=== PATIENT | female | born 1965 | race Caucasian/White ===

== ENCOUNTER 2016-11-11 11:05 | Emergency (ER) | payer OTHER ==
[~2016-11-11] VITALS: Ht 157.5 cm; Wt 61.2 kg
[~2016-11-11 11:05] MED LIST: ALBUTEROL0.09 MG/A1 INH; CLINDAMYCIN HY300 MG PO; CLONAZEPAM0.5 MG PO; CRESTOR20 MG; DOXYCYCLINE HY100 M4 PO; FENOFIBRIC ACI135 MG PO; GABAPENTIN300 MG PO; GABAPENTIN600 MG PO; GUAIFENESIN-COD10 ML PO; IBUPROFEN800 MG PO; LAMICTAL XR100 M1 PO; LAMOTRIGINE25 MG PO; LANSOPRAZOLE30 MG PO; LEVOTHYROXINE0.1 M1 PO; LEVOTHYROXINE100 MC1 PO; LOVAZA1 GM PO; MEDROL DOSEPAK1 PAC PO; MEDROL4 M2 PO; MOBIC 15MG15 MG PO; NEXIUM 40MG40 MG PO; OXYCODONE-ACET1 EAC1 PO; PERCOCET 325 MG1 TA2 PO; POLYTRIM EYE DR10 ML OP; PREVACID 30MG30 MG PO; PROAIR HFA8.5 GM INH; ROBITUSSIN W/CO10 ML PO; TESSALON PERLE100 M1 PO; TESSALON PERLE100 MG PO; TRAMADOL50 MG PO; TRILIPIX45 MG; TYLENOL XSTR500 MG PO; VENTOLIN H0.09 MG/Ac IH; VICODIN5-300 PO; VITAMIN D50000 IU PO; ZITHROMAX Z-PA250 M1 PO; ZITHROMAX500 M2 PO
[2016-11-11 11:17] VITALS: BP 93/61
[2016-11-11] MEDS ORDERED: AMLODIPINE BESYL5 M1 PO (12:20)
[2016-11-11] MEDS ORDERED: OMEPRAZOLE40 M1 PO (12:21)
[2016-11-11] MEDS ORDERED: GABAPENTIN300 M2 PO (12:21)
[2016-11-11] MEDS ORDERED: BUTALB-ACETAMI1 EAC1 PO (12:22)
[2016-11-11] MEDS ORDERED: CLONAZEPAM0.5 M2 PO (12:22)
[2016-11-11] MEDS ORDERED: VITAMIN D250000 UNIT PO (12:23)
[2016-11-11] MEDS ORDERED: OMEGA-3 ACID ETH1 GM PO (12:23)
[2016-11-11] MEDS ORDERED: FINACEA50 G1 TOP (12:23)
[2016-11-11] MEDS ORDERED: FLUTICASONE PRO16 GM NASB (12:24)
[2016-11-11] MEDS ORDERED: FLOVENT HFA12 GM INH (12:24)
[2016-11-11] MEDS ORDERED: CLEOCIN HCL300 M1 PO (12:39)
[2016-11-11] MEDS ORDERED: PERCOCET 5-3251 EACH PO (12:39)
--- NOTE | 2016-11-11 12:40 | ED THROAT/DENTAL COMPLAINT ---
History of Present Illness General Chief Complaint: Facial or Head Injury Stated Complaint: LEFT SIDE FACE AND NECK PAIN Source: patient, old records Exam Limitations: no limitations Vital Signs & Intake/Output Vital Signs & Intake/Output Vital Signs Date Time Temp Pulse Resp B/P Pulse O2 O2 Flow FiO2 Ox Delivery Rate 11/11 1117 96.7 60 16 93/61 97 Room Air Allergies Coded Allergies: Sulfa (Sulfonamide Antibiotics) (Intermediate, TOLD NOT TO TAKE A KID ) latex (Intermediate, HIVES 02/10/16) penicillin V (Intermediate, HIVES 02/10/16) sumatriptan (Intermediate, THROAT CLOSING 02/10/16) Reconcile Medications Amlodipine Besylate 5 MG TABLET 1 TAB PO DAILY BP (Reported) Azelaic Acid (Finacea) 15 % GEL..GRAM. 1 JUAN TOP PRN FACE (Reported) Butalb/Acetaminophen/Caffeine (Vvshwp-Fzrftoks-Qoaz 50-300-40) 50 MG-300 MG-40 MG CAPSULE 1 CAP PO PRN MIGRAINES (Reported) Clindamycin HCl (Cleocin HCl) 300 MG CAPSULE 1 CAP PO TID INFECTION Clonazepam 0.5 MG TABLET 1 TAB PO PRN ANXIETY (Reported) Ergocalciferol (Vitamin D2) (Vitamin D2) 50,000 UNIT CAPSULE 1 CAP PO Q2W SUPPLEMENT (Reported) Fluticasone Propionate 50 MCG/ACTUATION SPRAY.SUSP 2 SPRAY NASB DAILY ALLERGIES (Reported) Fluticasone Propionate (Flovent Hfa) 220 MCG AER.W.ADAP 1 PUFF INH PRN RESPIRATORY (Reported) Gabapentin 300 MG CAPSULE 2 CAP PO BID NERVE PAIN (Reported) Lamotrigine (Lamictal XR) 100 MG TAB.ER.24 1 TAB PO DAILY MENTAL HEALTH ( Reported) Levothyroxine Sodium 100 MCG TABLET 1 TAB PO DAILY AC THYROID (Reported) [place]-3 Acid Ethyl Esters 1 GRAM CAPSULE 2 CAP PO DAILY CHOLESTEROL (Reported ) Omeprazole 40 MG CAPSULE.DR 1 CAP PO DAILY GI (Reported) Oxycodone HCl/Acetaminophen (Percocet 5-325 MG Tablet) 5 MG-325 MG TABLET 1 TAB PO TID PRN PAIN Triage Note: PT STATES THE LEFT SIDE OF HER NECK IS SWOLLEN AND IT HURTS TO THE TOP OF HER HEAD. PT STATES HE HAS SOME PROBLEMS WITH HER TEETH ON THAT SIDE. Triage Nurses Notes Reviewed? yes HPI: 51-year-old female left-sided dental pain and swelling to the left side of the face. Started 2 days ago. She has no chills no fever. She has a history of same, was told that she should have her tooth extracted however she took antibiotics and her symptoms resolved and did not follow-up with the dentist again. She has moderate to severe throbbing pain. (SOCORRO LAMB) Past History Travel History Traveled to [place] past 21 day No Medical History Any Pertinent Medical History? 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 No (SOCORRO LAMB) Review of Systems Review of Systems Constitutional: Reports: see HPI. EENTM: Reports: see HPI. Respiratory: Reports: no symptoms. Cardiovascular: Reports: no symptoms. GI: Reports: no symptoms. Genitourinary: Reports: no symptoms. Musculoskeletal: Reports: no symptoms. Skin: Reports: no symptoms. Neurological/Psychological: Reports: no symptoms. Hematologic/Endocrine: Reports: no symptoms. Immunologic/Allergic: Reports: no symptoms. All Other Systems: Reviewed and Negative (SOCORRO LAMB) Physical Exam Physical Exam Mouth/Throat: pharynx normal Comments: Well-developed well-nourished no apparent distress. HEENT: Atraumatic, extraocular motion intact Mild left-sided facial swelling to the maxillary region. no erythema, no tenderness. intra oral exam shows premolar left upper that is carious and exposed pulp. no swelling of the gums or abscess. Neck: Supple, mild L cervical lymphadenopathy Back: Nontender Respiratory: No respiratory distress Extremities: No edema, full range of motion Neuro: Alert and oriented x3 Psych: Mood affect normal, normal memory normal judgment. Skin: Warm and dry, no rash on exposed skin Core Measures ACS in differential dx? No Severe Sepsis Present: No Septic Shock Present: No (SOCORRO LAMB) Progress Differential Diagnosis: aspirated tooth, carious tooth, epiglottitis, Ludwigs angina, meningitis, odontogenic abscess, abdiaziz-tonsillar abscess, pharyngeal for. body, stomatitis/gingivitis, strep pharyngitis, tooth fracture Plan of Care: tx with abx and rec dental fup . return to ER w wosrening pain, redness, swlelign, fever. fup with dentist mary. (SOCORRO LAMB) Departure Departure Disposition: HOME OR SELF CARE Condition: Stable Clinical Impression Primary Impression: Dental infection Referrals: ZENAIDA LING MD (PCP/Family) Additional Instructions: Take antibiotics as directed for infection Medication for pain Warm compresses Follow-up with your dentist as soon as possible. Return to the with worsening signs of infection, redness swelling fever or flulike illness Departure Forms: Customer Survey General Discharge Information Prescriptions: Current Visit Scripts Oxycodone HCl/Acetaminophen (Percocet 5-325 MG Tablet) 1 TAB PO TID PRN PAIN #10 TAB Clindamycin HCl (Cleocin HCl) 1 CAP PO TID #21 CAP (SOCORRO LAMB) PA/SHIATSU THERAPIST Co-Sign Statement Statement: ED Attending supervision documentation- [] I saw and evaluated the patient. I have also reviewed all the pertinent lab results and diagnostic results. I agree with the findings and the plan of care as documented in the PA's/SHIATSU THERAPIST's documentation. x I have reviewed the ED Record and agree with the PA's/SHIATSU THERAPIST's documentation. [] Additions or exceptions (if any) to the PAs/SHIATSU THERAPIST's note and plan are summarized below: [] (NATALIE PALOMINO,JEM)
== END 2016-11-11 12:51 ==
LOC: ERH 11:05
DX: K04.7 Periapical abscess without sinus (principal)

== ENCOUNTER 2017-02-10 17:22 | Emergency (ER) | payer OTHER ==
[~2017-02-10] VITALS: Ht 157.5 cm; Wt 61.2 kg
[~2017-02-10 17:22] MED LIST changes: +AMLODIPINE BESYL5 M1 PO; +BUTALB-ACETAMI1 EAC1 PO; +CLEOCIN HCL300 M1 PO; +CLONAZEPAM0.5 M2 PO; +FINACEA50 G1 TOP; +FLOVENT HFA12 GM INH; +FLUTICASONE PRO16 GM NASB; +GABAPENTIN300 M2 PO; +OMEGA-3 ACID ETH1 GM PO; +OMEPRAZOLE40 M1 PO; +PERCOCET 5-3251 EACH PO; +VITAMIN D250000 UNIT PO
[2017-02-10 17:25] VITALS: BP 123/80
--- NOTE | 2017-02-10 18:02 | ED INFLUENZA/URI COMPLAINT ---
History of Present Illness General Chief Complaint: Upper Respiratory Sx/Fever Stated Complaint: ?URI Source: patient Exam Limitations: no limitations Vital Signs & Intake/Output Vital Signs & Intake/Output Vital Signs Date Time Temp Pulse Resp B/P B/P Pulse O2 O2 Flow FiO2 Mean Ox Delivery Rate 02/10 1817 96 Room Air 02/10 1814 98 02/10 1725 97.5 74 18 123/80 98 Room Air ED Intake and Output 02/11 0000 02/10 1200 Intake Total Output Total Balance Patient 135 lb Weight Weight Reported by Patient Measurement Method Allergies Coded Allergies: Sulfa (Sulfonamide Antibiotics) (Intermediate, TOLD NOT TO TAKE A KID ) latex (Intermediate, HIVES 02/10/16) penicillin V (Intermediate, HIVES 02/10/16) sumatriptan (Intermediate, THROAT CLOSING 02/10/16) Reconcile Medications Albuterol Sulfate (Proventil Hfa) 90 MCG HFA.AER.AD 2 PUF INH Q4 SOB Amlodipine Besylate 5 MG TABLET 1 TAB PO DAILY BP (Reported) Azelaic Acid (Finacea) 15 % GEL..GRAM. 1 JUAN TOP PRN FACE (Reported) Benzonatate 200 MG CAPSULE 1 CAP PO TIDPRN COUGH Butalb/Acetaminophen/Caffeine (Lxeopp-Eekrntpm-Vgtn 50-300-40) 50 MG-300 MG-40 MG CAPSULE 1 CAP PO PRN MIGRAINES (Reported) Clonazepam 0.5 MG TABLET 1 TAB PO PRN ANXIETY (Reported) Doxycycline Hyclate 100 MG TABLET 1 TAB PO BID BRONCHITIS Ergocalciferol (Vitamin D2) (Vitamin D2) 50,000 UNIT CAPSULE 1 CAP PO Q2W SUPPLEMENT (Reported) Fluticasone Propionate 50 MCG/ACTUATION SPRAY.SUSP 2 SPRAY NASB DAILY ALLERGIES (Reported) Fluticasone Propionate (Flovent Hfa) 220 MCG AER.W.ADAP 1 PUFF INH PRN RESPIRATORY (Reported) Gabapentin 300 MG CAPSULE 2 CAP PO BID NERVE PAIN (Reported) Lamotrigine (Lamictal XR) 100 MG TAB.ER.24 1 TAB PO DAILY MENTAL HEALTH ( Reported) Levothyroxine Sodium 100 MCG TABLET 1 TAB PO DAILY AC THYROID (Reported) Montelukast Sodium (Unknown Strength) TABLET (Unknown Dose) UNKNOWN (Reported ) [place]-3 Acid Ethyl Esters 1 GRAM CAPSULE 2 CAP PO DAILY CHOLESTEROL (Reported ) Omeprazole 40 MG CAPSULE.DR 1 CAP PO DAILY GI (Reported) Prednisone (Deltasone) 20 MG TABLET 1 TAB PO TID BRONCHITIS Triage Note: 52 YO FEMALE TO TRIAGE C/O HEAD AND CHEST CONGESTION X3 WEEKS. STATES SHE HER COUGH IS PRODUCTIVE WITH CLEAR PHLEGM. PT STATES SHE HAS AN APPT WITH HER DR ON THURSDAY BUT COULDNT WAIT. AFEBRILE. Triage Nurses Notes Reviewed? yes Onset: Gradual Duration: week(s): (3), constant, continues in ED Timing: recent history Severity: moderate, severe No Modifying Factors: none HPI: 52-year-old female comes into emergency room with complaints of runny nose sinus congestion fever or chills body aches and productive cough with clear mucus production has been going on for the past 3 weeks. Patient smokes. Denies any vomiting. Denies any chest pain. Denies any other associated symptoms. Nothing seems to make the symptoms better or worse. (CECILLE LEWIS) Past History Travel History Traveled to [place] past 21 day No Medical History Any Pertinent Medical History? 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 No (CECILLE LEWIS) Review of Systems Review of Systems Constitutional: Reports: see HPI. EENTM: Reports: see HPI. Respiratory: Reports: see HPI. Cardiovascular: Reports: no symptoms. GI: Reports: no symptoms. Genitourinary: Reports: no symptoms. Musculoskeletal: Reports: no symptoms. Skin: Reports: no symptoms. Neurological/Psychological: Reports: no symptoms. Hematologic/Endocrine: Reports: no symptoms. Immunologic/Allergic: Reports: no symptoms. All Other Systems: Reviewed and Negative (CECILLE LEWIS) Physical Exam Physical Exam General Appearance: well developed/nourished, no apparent distress, alert, awake Head: atraumatic, normal appearance Eyes: Bilateral: normal appearance, EOMI. Ears, Nose, Throat: normal ENT inspection, moist mucous membrane, nasal congestion Neck: normal inspection Respiratory: decreased breath sounds, rhonchi Cardiovascular: regular rate/rhythm Back: normal inspection, normal range of motion Extremities: normal inspection, normal range of motion Neurologic/Psych: awake, alert, oriented x 3, normal gait Skin: intact, normal color Core Measures Severe Sepsis Present: No Septic Shock Present: No (CECILLE LEWIS) Progress Differential Diagnosis: influenza, meningitis, neutropenia, otitis, pneumonia, pharyngitis, sinusitis, BRONCHITIS Plan of Care: Current Medications Sig/Odilia Start time Last Medication Dose Stop Time Status Admin Albuterol Sulfate 3 ML ONCE ONE 02/10 1815 AC 02/10 (Proventil) 02/10 Ipratropium [place] 2.5 ML ONCE ONE 02/10 1815 AC 02/10 (Atrovent) 02/11 1816 180 Prednisone 60 MG ONCE ONE 02/10 1815 AC 02/11 1816 Initial ED EKG: none Comments: Patient clinically looks well. Symptoms are most consistent with bronchitis. Follow-up with primary care doctor. Return if any other concerns. Stop smoking. (CECILLE LEWIS) Departure Departure Disposition: HOME OR SELF CARE Condition: Stable Clinical Impression Primary Impression: Bronchitis Referrals: ZENAIDA LING MD (PCP/Family) Additional Instructions: Take doxycycline, prednisone, albuterol, and Tessalon Perles as prescribed. Stop smoking. Follow-up with your primary care doctor. Return if any concerns worsening symptoms. Please go over all results of today's visit with your primary care doctor. Contact your primary care doctor to let them know you were here in the emergency room. There may be nonspecific findings which may not be related to your visit today here in the emergency room but may require further evaluation and chronic monitoring by your primary care doctor. If you had a laceration today the chance of foreign body always remains. You should follow-up with your primary care doctor for recheck in 3-5 days for a wound check. If you had an x-ray done there is a chance that a fracture could have been missed on initial read and you should follow-up with your primary care doctor for repeat x-rays if symptoms persist. If your blood pressure was elevated here in the emergency room please have rechecked by her primary care doctor within the next 48 hours by your primary care doctor. If you were prescribed a narcotic here in the emergency room or any type of controlled substances you're not allowed to drive while taking this medication or operate any type of heavy machinery. Narcotics can make you feel lightheaded dizziness nausea and can cause constipation. You may need to picker tender a stool softener. Thank you for choosing [facility] emergency room. Please return to the emergency room immediately if you have any other concerns worsening of symptoms. Departure Forms: Customer Survey General Discharge Information Prescriptions: Current Visit Scripts Doxycycline Hyclate 1 TAB PO BID #20 TAB Prednisone (Deltasone) 1 TAB PO TID #12 MG Albuterol Sulfate (Proventil Hfa) 2 PUF INH Q4 #1 INHAL Benzonatate 1 CAP PO TIDPRN #20 CAP (CECILLE LEWIS) PA/MECHANICAL ENGINEER Co-Sign Statement Statement: ED Attending supervision documentation- [] I saw and evaluated the patient. I have also reviewed all the pertinent lab results and diagnostic results. I agree with the findings and the plan of care as documented in the PA's/MECHANICAL ENGINEER's documentation. [X] I have reviewed the ED Record and agree with the PA's/MECHANICAL ENGINEER's documentation. [] Additions or exceptions (if any) to the PAs/MECHANICAL ENGINEER's note and plan are summarized below: [] (RAFAT PALOMINO,JOSE MIGUEL)
[2017-02-10] MEDS ORDERED: PROVENTIL HFA6.7 GM INH (18:18)
[2017-02-10] MEDS ORDERED: DELTASONE20 MG PO (18:18)
[2017-02-10] MEDS ORDERED: DOXYCYCLINE HY100 M4 PO (18:18)
[2017-02-10] MEDS ORDERED: BENZONATATE200 M1 PO (18:18)
[2017-02-10] MEDS ORDERED: MONTELUKAST SOD10 M1 (18:40)
== END 2017-02-10 18:39 ==
LOC: ERH 17:22
DX: J40 Bronchitis, not specified as acute or chronic (principal); Z72.0 Tobacco use
CPT/HCPCS: 1263